=== PATIENT | female | born 1995 | race Caucasian/White ===

== ENCOUNTER 2017-04-11 10:26 | Emergency (ER) | payer OTHER ==
[2017-04-11] MEDS ORDERED: Metoclopramide HCl 10 MG/2 ML VIAL ONE (12:12)
[2017-04-11] MEDS ORDERED: diphenhydrAMINE 50 MG/ML VIAL ONE (12:12)
[2017-04-11] MEDS ORDERED: methylPREDNISolone Sod Succ/PF 125 MG/2 ML VIAL ONE (12:12)
[2017-04-11] MEDS ORDERED: Sterile Water 10 ML ONE (12:13)
[2017-04-11 12:30] LABS: #Lymphocytes 1.7 thou/uL (1.20-3.40); #Monocytes 0.4 thou/uL (0.11-0.59); #Neutrophils 3.9 thou/uL (1.40-6.50); %Basophils 0.4 % (0.0-1.0); %Eosinophils 0.4 % (0.0-10.0); %Lymphocytes 27.7 % (28.0-48.0); %Monocytes 7.3 % (0.0-4.0); Hematocrit 41.7 % (36.0-47.0); Red Blood Cell (RBC) Count 4.53 mill/uL (4.00-5.20); White Blood Cell (WBC) Count 6.1 thou/uL (4.8-10.8)
[2017-04-11] MEDS ORDERED: Magnesium 2 GM/NS 0.9% 50 ML 2 GM in Premix Bag 1 BAG IVPB SCH (12:30)
[2017-04-11 12:42] LABS: Anion Gap 12 mmol/L (10-20); BUN (Urea Nitrogen) 12 mg/dL (8.4-21.0); Calc. Creatinine Clearance 0 mL/min (70-130); Calcium 9.7 mg/dL (7.8-10.44); Carbon Dioxide 26 mmol/L (22-29); Chloride 102 mmol/L (98-107); Estimated GFR-MDRD Greater than 90
== END 2017-04-11 14:37 | disposition home or self-care (01) ==
LOC: ERS 10:26
DX: G43.909 Migraine, unspecified, not intractable, without status migrainosus (principal); F31.9 Bipolar disorder, unspecified; Z79.899 Other long term (current) drug therapy
CPT/HCPCS: 80048; 85025; 86140; 96365; 96375; A4216; J1200; J2765; J2930; J3475

== ENCOUNTER 2018-04-28 15:36 | Emergency (ER) | payer BC, OTHER ==
[2018-04-28] MEDS ORDERED: Dexamethasone 10 MG/ML VIAL ONE (16:26)
== END 2018-04-28 16:28 | disposition home or self-care (01) ==
LOC: ERS 15:36
DX: J02.9 Acute pharyngitis, unspecified (principal); G43.909 Migraine, unspecified, not intractable, without status migrainosus; F31.9 Bipolar disorder, unspecified; Z79.899 Other long term (current) drug therapy
CPT/HCPCS: 87081; 87430; 99283; J1100

== ENCOUNTER 2018-04-30 07:45 | Emergency (ER) | payer BC ==
[2018-04-30] MEDS ORDERED: Ketorolac Tromethamine 30 MG/ML VIAL ONE (08:42)
[2018-04-30] MEDS ORDERED: Bicillin LA 1.2 MILLION UNITS/2 ML SYRINGE ONE (08:42)
== END 2018-04-30 09:17 | disposition home or self-care (01) ==
LOC: ERS 07:45
DX: J02.0 Streptococcal pharyngitis (principal); G43.909 Migraine, unspecified, not intractable, without status migrainosus; F31.9 Bipolar disorder, unspecified; Z79.899 Other long term (current) drug therapy
CPT/HCPCS: 87081; 87430; 96372; J0561; J1885